=== PATIENT | female | born 1995 | race Two or more races ===

== ENCOUNTER 2020-01-31 18:49 | Inpatient (IN) | payer OTHER ==
[~2020-01-31] VITALS: Ht 160 cm; Wt 64.0 kg
[2020-01-31] MEDS ORDERED: PRENATAL 19 TA1 EACH PO (19:36)
== END 2020-02-02 18:47 | disposition home or self-care (01) | DRG 807 ==
LOC: OB/GYN 18:49 → LDR 18:49 → OB/GYN 22:54
PROVIDERS: ADMIT Specialist; ATTEND Specialist
PROC: 10E0XZZ Delivery of Products of Conception, External Approach (ICD-10-PCS; principal; 2020-01-31)
PROC: 4A1HXFZ Monitoring of Products of Conception, Cardiac Rhythm, External Approach (ICD-10-PCS; 2020-01-31)
PROC: 3E033VJ Introduction of Other Hormone into Peripheral Vein, Percutaneous Approach (ICD-10-PCS; 2020-01-31)
DX: O80 Encounter for full-term uncomplicated delivery (principal); Z37.0 Single live birth; Z3A.39 39 weeks gestation of pregnancy